=== PATIENT | female | born 1995 | race Caucasian/White ===

== ENCOUNTER 2016-08-28 17:13 | Emergency (ER) | payer BC ==
[2016-08-28] MEDS ORDERED: Triamcinolone Acetonide 40 MG/ML 1 ML MDV INJECT ONE (17:30)
[2016-08-28 17:31] VITALS: BP 138/81
--- NOTE | 2016-08-29 08:48 | ER ---
Date of Service: 08/28/2016 SUBJECTIVE: Bri presents to emergency room with complaints of eye irritation, sinus congestion, and sore throat. The patient states that she has been experiencing these symptoms for over 2 weeks. She states that she was seen in the clinic for congestion that was associated with more facial pain and was started on an antibiotic. The patient was started on cefuroxime but states that the symptoms have gotten worse. The facial pain continues to be improved. Again, she also does complain of some sore throat with this as well. She has also noticed some mild mattering to her eyes typically in the mornings. PAST MEDICAL HISTORY: GERD. MEDICATIONS: 1. Depo-Provera. 2. Zantac. 3. Nexium. ALLERGIES: 1. Amoxicillin. 2. Potassium clavulanate. 3. Sulfa. REVIEW OF SYSTEMS: General: No fever or chills. HEENT: Positive for eye, throat, and nose irritation and sinus congestion. Respiratory: Denies any shortness of breath or wheezing. Cardiac: Denies any substernal chest pain. No jaw, arm, neck, or back pain. GI: No nausea, vomiting, or diarrhea. No melena, hematochezia, or hematemesis. PHYSICAL EXAMINATION: General: This is a 20-year-old female patient, who is in no acute distress. Vital Signs: Blood pressure is 138/81, pulse rate is 101, temperature is 36.8, respiratory rate 16. Skin: Warm, pink, and dry. HEENT: Head is normocephalic, atraumatic. Eyes, PERRLA. Her conjunctiva is quite injected bilaterally. No mattering noted. Ears, TMs are clear. Mouth, oral mucosa is moist. Nose, nasal mucosa is somewhat robertson and boggy. Ears, TMs are clear. Lungs: Clear to auscultation. Heart: Regular rate and rhythm. ASSESSMENT: 1. Allergic conjunctivitis. 2. Allergic rhinitis. PLAN: The patient was given injection of Kenalog 80 mg IM. She was advised to take Benadryl 50 mg every 4-6 hours as needed when she is sleeping and 10 mg of Zyrtec particularly in the morning to help with her symptoms without causing drowsiness. All questions were answered. MWK: 08/28/2016 17:38:15 MODL: 08/28/2016 20:56:48 /[id number]
== END 2016-08-28 17:40 | disposition home or self-care (01) ==
LOC: VM.ED 17:13
DX: H10.13 Acute atopic conjunctivitis, bilateral (principal); K21.9 Gastro-esophageal reflux disease without esophagitis; Z88.1 Allergy status to other antibiotic agents; Z88.2 Allergy status to sulfonamides; Z88.8 Allergy status to other drugs, medicaments and biological substances; J30.9 Allergic rhinitis, unspecified
CPT/HCPCS: 96372; 99282; J3301

== ENCOUNTER 2016-12-14 20:50 | Emergency (ER) | payer BC ==
[2016-12-14] MEDS ORDERED: Sodium Chloride 0.9% 500 ML IV ONE (21:00)
[2016-12-14] MEDS ORDERED: Sodium Chloride 0.9% 10 ML Syringe FLUSH PRN (21:00)
[2016-12-14] MEDS ORDERED: Ondansetron 4 MG/2 ML SDV IVPUSH ONE (21:01)
[2016-12-14] MEDS ORDERED: Alum Hydroxide/Mag Hydroxide 10 ML, Lidocaine 2% 10 ML, Promethazine 12.5 MG PO ONE ×6 (21:02→21:29)
--- NOTE | 2016-12-14 21:05 | EDM.PDOC ---
[id number]: please delete duplicate chart Time Seen by Provider: 12/15/16 00:26 - Related Data Allergies Allergy/AdvReac Type Severity Reaction Status Date / Time amoxicillin trihydrate Allergy Rash Verified 08/28/16 17:24 [From Augmentin] potassium clavulanate Allergy Rash Verified 08/28/16 17:24 [From Augmentin] Sulfa (Sulfonamide Allergy Rash Verified 08/28/16 17:24 Antibiotics) Home Meds: Home Meds medroxyPROGESTERone Acetate [Depo-Provera] 150 mg IM Q90D 01/01/15 [History] Esomeprazole [NexIUM] 20 mg PO DAILY 01/28/15 [History] Ranitidine [Zantac] 150 mg PO BID PRN 01/28/15 [History] Past Medical History Other Gastrointestinal History: chronic abd. pain - Past Surgical History HEENT Surgical History: Reports: Adenoidectomy, Tonsillectomy Other Musculoskeletal Surgeries/Procedures:: ankle fx sx Social & Family History - Family History Family Medical History: Noncontributory - Tobacco Use Smoking Status *Q: Never Smoker Second Hand Smoke Exposure: No - Alcohol Use Number of Drinks Per Day: 5 - Recreational Drug Use Recreational Drug Use: No Drug Use in Last 12 Months: No ED ROS GENERAL - Review of Systems Review Of Systems: See Below ED EXAM, GI/ABD - Physical Exam Exam: See Below Course - Orders/Labs/Meds Orders: Active Orders 24 hr Category Date Time Status Abdomen Pelvis w Cont [CT] Stat Exams 12/14/16 20:58 Taken Sodium Chloride 0.9% [Normal Saline] 100 ml Med 12/14/16 21:15 Active IV ASDIRECTED Sodium Chloride 0.9% [Saline Flush] Med 12/14/16 21:00 Active 10 ml FLUSH ASDIRECTED PRN Peripheral IV Insertion Adult [OM.PC] Routine Oth 12/14/16 21:00 Ordered Medication Orders Sodium Chloride (Normal Saline) 100 mls @ 3 mls/sec IV ASDIRECTED ISAIAH Last Admin: 12/14/16 21:45 Dose: 3 mls/sec Sodium Chloride (Saline Flush) 10 ml FLUSH ASDIRECTED PRN PRN Reason: Keep Vein Open Labs: Laboratory Tests 12/14/16 12/14/16 Range/Units 21:10 21:10 WBC 6.3 (4.0-10.0) x10^3/uL RBC 4.80 (4.00-5.50) x10^6/uL Hgb 13.0 (12.0-16.0) g/dL Hct 39.5 (33.0-47.0) % MCV 82.3 (78.0-93.0) fL MCH 27.1 (26.0-32.0) pg MCHC 32.9 (32.0-36.0) g/dL RDW Coeff of Sam 14.2 (10.0-15.0) % Plt Count 290 (130-400) x10^3/uL Neut % (Auto) 52.0 (50.0-80.0) % Lymph % (Auto) 36.3 (25.0-50.0) % [place] % (Auto) 9.6 (2.0-11.0) % Eos % (Auto) 1.9 (0.0-4.0) % Baso % (Auto) 0.2 (0.2-1.2) % Sodium 142 (136-145) mmol/L Potassium 3.6 (3.5-5.1) mmol/L Chloride 104 (98-107) mmol/L Carbon Dioxide 26 (21-32) mmol/L BUN 8 (7-18) mg/dL Creatinine 0.8 (0.55-1.02) mg/dL Est Cr Clr Drug Dosing TNP Estimated GFR (MDRD) > 60 Glucose 102 (74-106) mg/dL Calcium 8.7 (8.5-10.1) mg/dL Corrected Calcium 9.02 (8.5-10.1) mg/dL Total Bilirubin 0.4 (0.2-1.0) mg/dL AST 13 L (15-37) U/L ALT 19 (14-59) U/L Alkaline Phosphatase 53 (46-116) U/L C-Reactive Protein < 0.2 (<=0.9) mg/dL Total Protein 7.9 (6.4-8.2) g/dL Albumin 3.6 (3.4-5.0) g/dL Globulin 4.3 Albumin/Globulin Ratio 0.84 Meds: Medications Generic Name Dose Route Start Last Admin Trade Name Freq PRN Reason Stop Dose Admin Sodium Chloride 100 mls @ 3 mls/sec 12/14/16 21:15 12/14/16 21:45 Normal Saline IV 3 mls/sec ASDIRECTED ISAIAH Administration Sodium Chloride 10 ml 12/14/16 21:00 Saline Flush FLUSH ASDIRECTED PRN Keep Vein Open Discontinued Medications Generic Name Dose Route Start Last Admin Trade Name Freq PRN Reason Stop Dose Admin Al Hydroxide/Mg Hydroxide Confirm 12/14/16 21:38 12/14/16 21:35 Gi Cocktail Administered 12/14/16 21:39 30 ml Dose Administration 30 ml .ROUTE .STK-MED ONE Al Hydroxide/Mg Hydroxide 10 0 ml 12/14/16 21:02 12/14/16 21:35 ml/ Lidocaine HCl 10 ml/ PO 12/14/16 21:03 Not Given Promethazine HCl 12.5 mg ONETIME ONE Al Hydroxide/Mg Hydroxide 10 0 ml 12/14/16 21:29 12/14/16 21:36 ml/ Lidocaine HCl 10 ml/ PO 12/14/16 21:30 Not Given Promethazine HCl 12.5 mg ONETIME ONE Sodium Chloride 500 mls @ 500 mls/hr 12/14/16 21:00 Normal Saline IV 12/14/16 21:59 ONETIME ONE Iopamidol 100 ml 12/14/16 21:15 12/14/16 21:44 Isovue-300 (61%) IVPUSH 12/14/16 21:16 100 ml ONETIME ONE Administration Ondansetron HCl 4 mg 12/14/16 21:01 12/14/16 21:25 Zofran IVPUSH 12/14/16 21:02 4 mg ONETIME ONE Administration Departure - Departure Time of Disposition: 23:40 Disposition: Home, Self-Care 01 Clinical Impression: Acid reflux Qualifiers: Esophagitis presence: with esophagitis Qualified Code(s): K21.0 - Gastro- esophageal reflux disease with esophagitis - Discharge Information Referrals: Bri Barrios PA-C [Primary Care Provider] - 1 Day Additional Instructions: Please delete chart duplicate - My Orders Last 24 Hours: My Active Orders 12/14/16 20:58 Abdomen Pelvis w Cont [CT] Stat 12/14/16 21:00 Sodium Chloride 0.9% [Saline Flush] 10 ml FLUSH ASDIRECTED PRN Peripheral IV Insertion Adult [OM.PC] Routine 12/14/16 21:15 Sodium Chloride 0.9% [Normal Saline] 100 ml IV ASDIRECTED - Assessment/Plan Last 24 Hours: My Active Orders 12/14/16 20:58 Abdomen Pelvis w Cont [CT] Stat 12/14/16 21:00 Sodium Chloride 0.9% [Saline Flush] 10 ml FLUSH ASDIRECTED PRN Peripheral IV Insertion Adult [OM.PC] Routine 12/14/16 21:15 Sodium Chloride 0.9% [Normal Saline] 100 ml IV ASDIRECTED
--- NOTE | 2016-12-14 21:10 | EDM.PDOC ---
ED HPI GENERAL MEDICAL PROBLEM - General Chief Complaint: Abdominal Pain Time Seen by Provider: 12/14/16 20:54 Source of Information: Reports: Patient - History of Present Illness INITIAL COMMENTS - FREE TEXT/NARRATIVE: Pt states she has a long standing history with acid reflex. Starting approx 3 days ago she began having intermittant abdominal pain that she thought would get better. However this afternoon severe pressure, bloating, and pain progressed bringing her here now. Pt states she has not had a normal bowel movement in the past week. Did take 2 doses of miralax to help with the constipation with little relief. Pt denies any bloody stool or vomiting. Positive for nausea and decrease flatus. Onset: Gradual Onset Date: 12/12/16 Duration: Getting Worse Quality: Reports: Pressure, Sharp, Stabbing Severity: Severe Improves with: Reports: None Worsens with: Reports: None Associated Symptoms: Reports: Loss of Appetite, Malaise, Nausea/Vomiting. Denies: Confusion, Headaches, Seizure Treatments [employer]: Reports: Other (see below) (miralax) - Related Data Allergies Allergy/AdvReac Type Severity Reaction Status Date / Time amoxicillin trihydrate Allergy Rash Verified 08/28/16 17:24 [From Augmentin] potassium clavulanate Allergy Rash Verified 08/28/16 17:24 [From Augmentin] Sulfa (Sulfonamide Allergy Rash Verified 08/28/16 17:24 Antibiotics) Home Meds: Home Meds medroxyPROGESTERone Acetate [Depo-Provera] 150 mg IM Q90D 01/01/15 [History] Esomeprazole [NexIUM] 20 mg PO DAILY 01/28/15 [History] Ranitidine [Zantac] 150 mg PO BID PRN 01/28/15 [History] Past Medical History Other Gastrointestinal History: chronic abd. pain - Past Surgical History HEENT Surgical History: Reports: Adenoidectomy, Tonsillectomy Other Musculoskeletal Surgeries/Procedures:: ankle fx sx Social & Family History - Family History Family Medical History: Noncontributory - Tobacco Use Smoking Status *Q: Never Smoker Second Hand Smoke Exposure: No - Alcohol Use Number of Drinks Per Day: 5 - Recreational Drug Use Recreational Drug Use: No Drug Use in Last 12 Months: No ED ROS GENERAL - Review of Systems Review Of Systems: See Below Constitutional: Reports: Decreased Appetite. Denies: Fever, Chills, Malaise HEENT: Reports: No Symptoms Respiratory: Reports: No Symptoms, Hemoptysis. Denies: Shortness of Breath Cardiovascular: Reports: No Symptoms. Denies: Chest Pain Endocrine: Reports: No Symptoms GI/Abdominal: Reports: Abdominal Pain, Anorexia, Constipation, Diarrhea (2 very small loose stools after taking miralax), Distension, Nausea. Denies: Black Stool, Bloody Stool, Difficulty Swallowing, Melena, Mucous in Stool, Vomiting : Reports: No Symptoms Musculoskeletal: Reports: No Symptoms Skin: Reports: No Symptoms Neurological: Reports: No Symptoms Psychiatric: Reports: No Symptoms ED EXAM, GI/ABD - Physical Exam Exam: See Below Exam Limited By: No Limitations General Appearance: Alert, WD/WN, No Apparent Distress Head: Atraumatic, Normocephalic Respiratory/Chest: No Respiratory Distress, Lungs Clear, No Accessory Muscle Use , Chest Non-Tender Cardiovascular: Normal Peripheral Pulses, Regular Rate, Rhythm, No Edema, No JVD GI/Abdominal Exam: Distended, Guarding, Tender, Abnormal Bowel Sounds. No: No Abnormal Bruit, Pelvis Stable, Hepatomegaly, Splenomegaly Extremities: Normal Inspection, Normal Range of Motion, Normal Capillary Refill Neurological: Alert, Oriented, CN II-XII Intact Psychiatric: Normal Affect, Normal Mood Skin Exam: Warm, Dry, Intact, Normal Color Course - Orders/Labs/Meds Orders: Active Orders 24 hr Category Date Time Status Abdomen Pelvis w Cont [CT] Stat Exams 12/14/16 20:58 Taken Sodium Chloride 0.9% [Normal Saline] 100 ml Med 12/14/16 21:15 Active IV ASDIRECTED Sodium Chloride 0.9% [Saline Flush] Med 12/14/16 21:00 Active 10 ml FLUSH ASDIRECTED PRN Peripheral IV Insertion Adult [OM.PC] Routine Oth 12/14/16 21:00 Ordered Medication Orders Sodium Chloride (Normal Saline) 100 mls @ 3 mls/sec IV ASDIRECTED [facility] Last Admin: 12/14/16 21:45 Dose: 3 mls/sec Sodium Chloride (Saline Flush) 10 ml FLUSH ASDIRECTED PRN PRN Reason: Keep Vein Open Labs: Laboratory Tests 12/14/16 12/14/16 Range/Units 21:10 21:10 WBC 6.3 (4.0-10.0) x10^3/uL RBC 4.80 (4.00-5.50) x10^6/uL Hgb 13.0 (12.0-16.0) g/dL Hct 39.5 (33.0-47.0) % MCV 82.3 (78.0-93.0) fL MCH 27.1 (26.0-32.0) pg MCHC 32.9 (32.0-36.0) g/dL RDW Coeff of Sam 14.2 (10.0-15.0) % Plt Count 290 (130-400) x10^3/uL Neut % (Auto) 52.0 (50.0-80.0) % Lymph % (Auto) 36.3 (25.0-50.0) % [place] % (Auto) 9.6 (2.0-11.0) % Eos % (Auto) 1.9 (0.0-4.0) % Baso % (Auto) 0.2 (0.2-1.2) % Sodium 142 (136-145) mmol/L Potassium 3.6 (3.5-5.1) mmol/L Chloride 104 (98-107) mmol/L Carbon Dioxide 26 (21-32) mmol/L BUN 8 (7-18) mg/dL Creatinine 0.8 (0.55-1.02) mg/dL Est Cr Clr Drug Dosing TNP Estimated GFR (MDRD) > 60 Glucose 102 (74-106) mg/dL Calcium 8.7 (8.5-10.1) mg/dL Corrected Calcium 9.02 (8.5-10.1) mg/dL Total Bilirubin 0.4 (0.2-1.0) mg/dL AST 13 L (15-37) U/L ALT 19 (14-59) U/L Alkaline Phosphatase 53 (46-116) U/L C-Reactive Protein < 0.2 (<=0.9) mg/dL Total Protein 7.9 (6.4-8.2) g/dL Albumin 3.6 (3.4-5.0) g/dL Globulin 4.3 Albumin/Globulin Ratio 0.84 Meds: Medications Generic Name Dose Route Start Last Admin Trade Name Freq PRN Reason Stop Dose Admin Sodium Chloride 100 mls @ 3 mls/sec 12/14/16 21:15 08/04/17 21:45 Normal Saline IV 3 mls/sec ASDIRECTED ISAIAH Administration Sodium Chloride 10 ml 12/14/16 21:00 Saline Flush FLUSH ASDIRECTED PRN Keep Vein Open Discontinued Medications Generic Name Dose Route Start Last Admin Trade Name Ekaterina PRN Reason Stop Dose Admin Al Hydroxide/Mg Hydroxide Confirm 12/14/16 21:38 12/14/16 21:35 Gi Cocktail Administered 12/14/16 21:39 30 ml Dose Administration 30 ml .ROUTE .STK-MED ONE Al Hydroxide/Mg Hydroxide 10 0 ml 12/14/16 21:02 12/14/16 21:35 ml/ Lidocaine HCl 10 ml/ PO 12/14/16 21:03 Not Given Promethazine HCl 12.5 mg ONETIME ONE Al Hydroxide/Mg Hydroxide 10 0 ml 12/14/16 21:29 12/14/16 21:36 ml/ Lidocaine HCl 10 ml/ PO 12/14/16 21:30 Not Given Promethazine HCl 12.5 mg ONETIME ONE Sodium Chloride 500 mls @ 500 mls/hr 12/14/16 21:00 Normal Saline IV 12/14/16 21:59 ONETIME ONE Iopamidol 100 ml 12/14/16 21:15 12/14/16 21:44 Isovue-300 (61%) IVPUSH 12/14/16 21:16 100 ml ONETIME ONE Administration Ondansetron HCl 4 mg 12/14/16 21:01 12/14/16 21:25 Zofran IVPUSH 12/14/16 21:02 4 mg ONETIME ONE Administration Departure - Departure Time of Disposition: 22:40 Disposition: Home, Self-Care 01 Condition: Good Clinical Impression: Reflux esophagitis, Reflux gastritis - Discharge Information Instructions: Abdominal Pain, Adult, [id number] Forms: ED Department Discharge - My Orders Last 24 Hours: My Active Orders 12/14/16 20:58 Abdomen Pelvis w Cont [CT] Stat 12/14/16 21:00 Sodium Chloride 0.9% [Saline Flush] 10 ml FLUSH ASDIRECTED PRN Peripheral IV Insertion Adult [OM.PC] Routine 12/14/16 21:15 Sodium Chloride 0.9% [Normal Saline] 100 ml IV ASDIRECTED - Assessment/Plan Last 24 Hours: My Active Orders 12/14/16 20:58 Abdomen Pelvis w Cont [CT] Stat 12/14/16 21:00 Sodium Chloride 0.9% [Saline Flush] 10 ml FLUSH ASDIRECTED PRN Peripheral IV Insertion Adult [OM.PC] Routine 12/14/16 21:15 Sodium Chloride 0.9% [Normal Saline] 100 ml IV ASDIRECTED
[2016-12-14] MEDS ORDERED: Sodium Chloride 0.9% 100 ML IV SCH (21:15)
[2016-12-14] MEDS ORDERED: Iopamidol 612 MG/ML 100 ML Bottle IVPUSH ONE (21:15)
[2016-12-14] MEDS ORDERED: GI Cocktail Oral Solution 30 ML ONE (21:38)
[2016-12-14 21:48] LABS: CHLORIDE,CL 104 mmol/L (98-107); SODIUM,NA 142 mmol/L (136-145)
[2016-12-15 04:17] VITALS: BP 142/62
== END 2016-12-14 22:45 | disposition home or self-care (01) ==
LOC: VM.ED 20:50 → SUPCPDRO 20:50 → VM.ED 22:45
DX: K21.0 Gastro-esophageal reflux disease with esophagitis (principal); Z88.2 Allergy status to sulfonamides; Z88.1 Allergy status to other antibiotic agents; Z79.899 Other long term (current) drug therapy; Z90.89 Acquired absence of other organs
CPT/HCPCS: 74177; 80053; 85025; 86140; 96365; 96375; 99284; A9270; J2405; J7050; Q9967

== ENCOUNTER 2017-07-11 06:57 | Day surgery (SDC) | payer BC ==
[2017-07-11] MEDS ORDERED: fentaNYL 100 MCG/2 ML SDV ONE (07:58)
[2017-07-11] MEDS ORDERED: Propofol 200 MG/20 ML SDV ONE ×3 (07:59→09:30)
[2017-07-11] MEDS: Lactated Ringers 1,000 ML IV SCH (08:05)
[2017-07-11 10:41] VITALS: BP 126/74
[2017-07-11] MEDS: Nalbuphine 10 MG/1 ML Vial IVPUSH ONE (13:15)
--- NOTE | 2017-07-11 18:07 | OR ---
SURGERY DATE: 07/11/2017. REFERRING PROVIDER: Petr Martinez MD. PREOPERATIVE DIAGNOSES: 1. Chronic upper abdominal pain and bloating, worsened by eating certain foods. 2. Chronic nausea and vomiting. 3. Irregular bowel movements with alternating constipation and diarrhea. POSTOPERATIVE DIAGNOSES: Normal appearing esophagus, stomach, and duodenum. Cold biopsies taken from the duodenum x4 bites and antrum x2 bites. PROCEDURE: EGD with biopsies x2 sites using cold forceps. SURGEON: Carlitos Cao M.D. ANESTHESIA: Monitored anesthesia care. Bri is a 21-year-old female who was brought to the endoscope suite after discussion of risks and benefits (including but not limited to reaction to medication, bleeding, infection, aspiration, perforation). Informed consent was obtained for monitored anesthesia care and esophagogastroduodenoscopy along with possible biopsy and/or dilatation. Pre-procedure exam including oral cavity was unremarkable. IV, oxygen, and monitors were placed. Patient was placed in the left lateral position and sedation was administered. A bite block was placed gently and scope lightly lubricated and passed through the bite block and over the tongue. Hypopharynx and vocal cords were visualized and unremarkable. Scope was passed through the cricopharynx and into the esophagus. The scope was then passed through the distal esophagus and the GE junction was visualized and photographed. The GE junction was unremarkable. Vocal cords were visualized and unremarkable. The scope was advanced into the stomach and gastric reagan was suctioned. Pylorus was identified and intubated and then the scope was advanced to the third portion of the duodenum. The second and third portions of the duodenum were unremarkable. The duodenal bulb was visualized and unremarkable. A total of 4 bites taken from the duodenum for path. The scope was brought back into the stomach. The pylorus and the antrum were unremarkable. Cold biopsy x2 bites was taken from this area to check for H. pylori and sent for path. The scope was retroflexed to visualize the angularis, fundus, body, and cardia. These were unremarkable. The stomach was desufflated of air and then the scope was slowly withdrawn, and the esophagus was closely visualized during withdrawal all the way into the posterior pharynx. In the upper esophagus there was an area of heterotopic type mucosa. Cold biopsy x2 bites was taken of this area and sent for path. The patient tolerated the procedure well and went to recovery in stable condition. The patient was monitored until at baseline status. Findings and discharge instructions were reviewed and the patient was discharged in good condition. COMPLICATIONS: None. TOTAL TIME: 8 minutes. ESTIMATED BLOOD LOSS: About 1 mL. RECOMMENDATIONS/FOLLOWUP: No medication changes for now. We will await results of path report. I would like to kindly thank Dr. Martinez for this referral. DMB: 07/11/2017 10:15:25 MODL: 07/11/2017 17:56:26 /[id number]
--- NOTE | 2017-07-11 18:12 | OR ---
DATE OF SURGERY: 07/11/2017. REFERRING PROVIDER: Petr Martinez MD, [facility] in [place]. PREOPERATIVE DIAGNOSES: 1. Chronic upper abdominal pain and bloating. 2. Chronic nausea and vomiting. 3. Irregular bowel pattern with alternating constipation and diarrhea. Symptoms ongoing for the past 4+ years. POSTOPERATIVE DIAGNOSES: Normal-appearing colon and distal ilium. Distal ilium did have mild cobblestone-like appearance but this appeared to be normal lymphoid tissue. Cold biopsies taken from the distal ilium as well as randomly throughout the colon. PROCEDURE: Colonoscopy with cold biopsy x2 sites (distal ileal and random colon). SURGEON: Carlitos Cao M.D. ANESTHESIA: Monitored anesthesia care. BOWEL PREP: Good. Bri is a 21-year-old female who was brought to the endoscopy suite after discussing risks and benefits of the procedure. Informed consent was obtained for conscious sedation and colonoscopy with or without biopsy and/or polypectomy. We also discussed possibility of missed lesions. Pre-procedure exam was unremarkable. IV, oxygen, and monitors were placed. The patient was placed in the left lateral decubitus position. Sedation was administered and a digital rectal exam was performed and unremarkable. Colonoscope was passed into the rectum and slowly advanced all the way to the cecum. Cecum was viewed and photographed. Distal ilium was intubated and did have mild cobblestone like appearance but I think this represents just some normal lymphoid tissue. Biopsies x3 bites taken from the terminal ileum. The colonoscope was slowly withdrawn and the mucosa was closed observed in a direct circumferential manner. The ascending colon was unremarkable. The transverse colon was unremarkable. The descending colon was unremarkable. The sigmoid colon was unremarkable. Retroflexion was performed and rectal mucosa was unremarkable. During withdrawal, I did obtain random colon biopsies from the right colon, transverse colon, descending colon, sigmoid colon, and rectal areas. Scope was removed. The patient tolerated the procedure well. The patient was monitored until that baseline status. Discharge instructions were reviewed and the patient was discharged in good condition. COMPLICATIONS: None. TOTAL TIME: 22 minutes. ESTIMATED BLOOD LOSS: About 1 mL. RECOMMENDATIONS/FOLLOWUP: We will await results of path report to determine ideal followup interval and the need for any additional treatment or workup. I would like to kindly thank Dr. Martinez for this referral. DMB: 07/11/2017 10:19:11 MODL: 07/11/2017 18:05:57 /[id number]
== END 2017-07-11 13:09 | disposition home or self-care (01) ==
LOC: VM.SDS 06:57
PROVIDERS: ATTEND Family Medicine
DX: K29.50 Unspecified chronic gastritis without bleeding (principal); J30.9 Allergic rhinitis, unspecified; Z88.8 Allergy status to other drugs, medicaments and biological substances; Z88.2 Allergy status to sulfonamides; Z79.899 Other long term (current) drug therapy; Z90.49 Acquired absence of other specified parts of digestive tract
CPT/HCPCS: 43239; 45380; 81025; J2300; J2704; J3010; J7120

== ENCOUNTER 2017-07-13 10:42 | Emergency (ER) | payer BC ==
--- NOTE | 2017-07-13 10:57 | EDM.PDOC ---
ED HPI GENERAL MEDICAL PROBLEM - General Chief Complaint: ENT Problem Stated Complaint: RIGHT EAR HURTS Time Seen by Provider: 07/13/17 10:44 Source of Information: Reports: Patient History Limitations: Reports: No Limitations - History of Present Illness INITIAL COMMENTS - FREE TEXT/NARRATIVE: Patient comes into the emergency department today after a one-day history of severe right ear pain. Patient states that it was a sudden abrupt onset. Denies any ear trauma, dizziness, lightheadedness, or blurred vision. She states she's had an ear infection before this feels similar to that. 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 She states that she believes she has a low-grade fever she has not checked her temperature but she does have chills. Denies any nausea, vomiting, diarrhea, throat discomfort/pain, or shortness of breath. She is otherwise healthy and has no other health concerns Onset: Sudden Onset Date: 07/12/17 Severity: Moderate Improves with: Reports: None Worsens with: Reports: None Right Ear Pain Score (Numeric/FACES): 7 - Related Data Allergies Allergy/AdvReac Type Severity Reaction Status Date / Time amoxicillin trihydrate Allergy Rash Verified 07/13/17 10:49 [From Augmentin] potassium clavulanate Allergy Rash Verified 07/13/17 10:49 [From Augmentin] Sulfa (Sulfonamide Allergy Rash Verified 07/13/17 10:49 Antibiotics) Home Meds: Home Meds Esomeprazole [NexIUM] 40 mg PO BID 01/28/15 [History] Ranitidine [Zantac] 75 mg PO BID PRN 01/28/15 [History] Levonorgestrel-Ethin Estradiol [Aviane-28 Tablet] 1 tab PO DAILY 07/10/17 [ History] Ondansetron HCl [Zofran] 4 mg PO TID PRN 07/10/17 [History] Cefdinir [IJD: Cefdinir] 300 mg PO BID 10 Days #20 cap 07/13/17 [Rx] Past Medical History HEENT History: Reports: Allergic Rhinitis Cardiovascular History: Reports: None Respiratory History: Reports: None Gastrointestinal History: Reports: Gastritis Other Gastrointestinal History: chronic abd. pain. 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 Musculoskeletal History: Reports: None Neurological History: Reports: None Psychiatric History: Reports: None Endocrine/Metabolic History: Reports: None Hematologic History: Reports: None Immunologic History: Reports: None Oncologic (Cancer) History: Reports: None Dermatologic History: Reports: None - Past Surgical History Head Surgeries/Procedures: Reports: None HEENT Surgical History: Reports: Oral Surgery, Tonsillectomy Cardiovascular Surgical History: Reports: None Respiratory Surgical History: Reports: None GI Surgical History: Reports: EGD Female Surgical History: Reports: None Endocrine Surgical History: Reports: None Neurological Surgical History: Reports: None Other Musculoskeletal Surgeries/Procedures:: ankle fx sx Oncologic Surgical History: Reports: None Dermatological Surgical History: Reports: None Social & Family History - Family History Family Medical History: Noncontributory - Tobacco Use Smoking Status *Q: Never Smoker Second Hand Smoke Exposure: No - Alcohol Use Number of Drinks Per Day: 5 - Recreational Drug Use Recreational Drug Use: No Drug Use in Last 12 Months: No ED ROS ENT - Review of Systems Review Of Systems: See Below Constitutional: Reports: No Symptoms HEENT: Reports: Ear Pain. Denies: Eye Discharge, Eye Pain, Glasses, Hearing Loss, Nosebleed, Nose Pain, Rhinitis, Sinus Problem, Throat Pain, Throat Swelling, Vertigo, Vision Change Respiratory: Reports: No Symptoms Cardiovascular: Reports: No Symptoms Endocrine: Reports: No Symptoms GI/Abdominal: Reports: No Symptoms Musculoskeletal: Reports: No Symptoms Skin: Reports: No Symptoms Neurological: Reports: No Symptoms ED EXAM, ENT - Physical Exam Exam: See Below Exam Limited By: No Limitations General Appearance: Alert, WD/WN, No Apparent Distress Ears: TM Bulging (right ear), TM Erythema (right ear). No: Auricular Erythema, Auricular Ecchymosis, Auricular Tenderness, Mastoid Swelling, Mastoid Tenderness , Canal Blood, Canal Discharge, Canal Foreign Body, Canal Material, Canal Swelling, TM Obscured by Cerumen, Cerumen Impaction Nose: Normal Inspection, Normal Mucousa, No Blood Mouth/Throat: Normal Inspection Head: Atraumatic, Normocephalic Respiratory/Chest: No Respiratory Distress, Lungs Clear, Normal Breath Sounds, No Accessory Muscle Use, Chest Non-Tender Cardiovascular: Normal Peripheral Pulses, Regular Rate, Rhythm, No Edema Neurological: Alert, Oriented Psychiatric: Normal Affect, Normal Mood Skin: Warm, Dry, Intact, Normal Color Course - Vital Signs Last Recorded V/S: Last Vital Signs Temp 37.9 C 07/13/17 10:47 Pulse 99 07/13/17 10:47 Resp 14 07/13/17 10:47 BP 157/95 H 07/13/17 10:47 Pulse Ox 95 07/13/17 10:47 Departure - Departure Time of Disposition: 10:55 Disposition: Home, Self-Care 01 Condition: Good Clinical Impression: Otitis media Qualifiers: Otitis media type: suppurative Chronicity: acute Laterality: right Spontaneous tympanic membrane rupture: without spontaneous rupture - Discharge Information Prescriptions: Cefdinir [IJD: Cefdinir] 300 mg PO BID 10 Days #20 cap Instructions: Otitis Media, Adult, [id number] Referrals: PCP,None [Ordering Only Provider] - Forms: ED Department Discharge Additional Instructions: 1. Increase water intake 2. Rest 3. Ensure wearing a hat while outdoors 4. Avoid submerging head under water 5. Follow up with PCP in 7-10 days if not feeling better 6. Take [id number] ibuprofen or Tylenol for pain fever or discomfort 7. Activity and diet as tolerated - Assessment/Plan Plan: Assessment: otitis media. 1. Take abx as prescribed. Pt is allergic to PCN and sulfa. Cefinir prescribed for 10 days. 2. Education given to pt regarding proper care of otitis media 3. Information given regarding when to follow up and OTC pain/fever management.
[2017-07-13 11:15] VITALS: BP 149/84
== END 2017-07-13 11:00 | disposition home or self-care (01) ==
LOC: VM.ED 10:42
DX: H66.001 Acute suppurative otitis media without spontaneous rupture of ear drum, right ear (principal); Z88.1 Allergy status to other antibiotic agents; Z88.2 Allergy status to sulfonamides; Z79.899 Other long term (current) drug therapy
CPT/HCPCS: 99282

== ENCOUNTER 2018-01-05 15:32 | Emergency (ER) | payer BC ==
[2018-01-05 15:50] VITALS: BP 158/62
[2018-01-05] MEDS ORDERED: Sodium Chloride 0.9% 10 ML Syringe FLUSH PRN (15:50)
[2018-01-05] MEDS: GI Cocktail Oral Solution 30 ML PO ONE (16:05)
[2018-01-05] MEDS: Lactated Ringers 1,000 ML IV SCH (16:13)
[2018-01-05] MEDS: Ondansetron 4 MG/2 ML SDV IVPUSH ONE (16:13)
[2018-01-05 16:39] LABS: CHLORIDE,CL 103 mmol/L (98-107); SODIUM,NA 138 mmol/L (136-145)
[2018-01-05 16:45] LABS: ANION GAP 10.7 mmol/L (10-20)
--- NOTE | 2018-01-05 17:09 | EDM.PDOC ---
ED HPI GENERAL MEDICAL PROBLEM - General Chief Complaint: Abdominal Pain Time Seen by Provider: 01/05/18 15:32 Source of Information: Reports: Patient History Limitations: Reports: No Limitations - History of Present Illness INITIAL COMMENTS - FREE TEXT/NARRATIVE: Pt. presents to ER complaining of mid abdominal discomfort. Denies any fever or chills. States that the discomfort is similar to when she has had gastritis in the past. Nauseated, no vomiting. Experiencing occasional diarrhea, but normally has issues with constipation. She has had upper and lower endoscopy and has seen GI in the past. She is scheduled for a [place] referral next month. States that when she has had discomfort like this, GI cocktail has been beneficial. Onset: Today Location: Reports: Abdomen Quality: Reports: Burning Severity: Moderate Lower Abdomen Pain Score (Numeric/FACES): 3 - Related Data Allergies Allergy/AdvReac Type Severity Reaction Status Date / Time amoxicillin trihydrate Allergy Rash Verified 01/05/18 15:44 [From Augmentin] potassium clavulanate Allergy Rash Verified 01/05/18 15:44 [From Augmentin] Sulfa (Sulfonamide Allergy Rash Verified 01/05/18 15:44 Antibiotics) Home Meds: Home Meds Esomeprazole [NexIUM] 40 mg PO BID 01/28/15 [History] Ranitidine [Zantac] 75 mg PO BID PRN 01/28/15 [History] Levonorgestrel-Ethin Estradiol [Aviane-28 Tablet] 1 tab PO DAILY 07/10/17 [ History] Ondansetron HCl [Zofran] 4 mg PO TID PRN 07/10/17 [History] Cefdinir [IJD: Cefdinir] 300 mg PO BID 10 Days #20 cap 07/13/17 [Rx] Past Medical History HEENT History: Reports: Allergic Rhinitis Cardiovascular History: Reports: None Respiratory History: Reports: None Gastrointestinal History: Reports: Gastritis Other Gastrointestinal History: chronic abd. pain. 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 Musculoskeletal History: Reports: None Neurological History: Reports: None Psychiatric History: Reports: None Endocrine/Metabolic History: Reports: None Hematologic History: Reports: None Immunologic History: Reports: None Oncologic (Cancer) History: Reports: None Dermatologic History: Reports: None - Past Surgical History Head Surgeries/Procedures: Reports: None HEENT Surgical History: Reports: Adenoidectomy, Oral Surgery, Tonsillectomy Cardiovascular Surgical History: Reports: None Respiratory Surgical History: Reports: None GI Surgical History: Reports: Colonoscopy, EGD Female Surgical History: Reports: None Endocrine Surgical History: Reports: None Neurological Surgical History: Reports: None Other Musculoskeletal Surgeries/Procedures:: ankle fx sx Oncologic Surgical History: Reports: None Dermatological Surgical History: Reports: None Social & Family History - Family History Family Medical History: Noncontributory - Tobacco Use Smoking Status *Q: Never Smoker - Recreational Drug Use Recreational Drug Use: No ED ROS GENERAL - Review of Systems Review Of Systems: See Below Constitutional: Reports: No Symptoms HEENT: Reports: No Symptoms Respiratory: Reports: No Symptoms Cardiovascular: Reports: No Symptoms Endocrine: Reports: No Symptoms GI/Abdominal: Reports: Abdominal Pain, Diarrhea. Denies: Hematemesis, Hematochezia, Melena : Reports: No Symptoms Musculoskeletal: Reports: No Symptoms Skin: Reports: No Symptoms Neurological: Reports: No Symptoms Psychiatric: Reports: No Symptoms Hematologic/Lymphatic: Reports: No Symptoms Immunologic: Reports: No Symptoms ED EXAM, GENERAL - Physical Exam Exam: See Below Exam Limited By: No Limitations General Appearance: Alert, WD/WN, No Apparent Distress Throat/Mouth: Normal Inspection, Normal Lips, Normal Teeth, Normal Gums, Normal Oropharynx, Normal Voice, No Airway Compromise Head: Atraumatic, Normocephalic Neck: Normal Inspection, Supple, Non-Tender, Full Range of Motion Respiratory/Chest: No Respiratory Distress, Lungs Clear, Normal Breath Sounds, No Accessory Muscle Use, Chest Non-Tender Cardiovascular: Normal Peripheral Pulses, Regular Rate, Rhythm, No Edema, No Gallop, No JVD, No Murmur, No Rub Peripheral Pulses: 3+: Radial (R) GI/Abdominal: Normal Bowel Sounds, Soft, No Organomegaly, No Distention, No Mass , Tender (Female) Exam: Deferred Rectal (Female) Exam: Deferred Back Exam: Normal Inspection, Full Range of Motion, NT Extremities: Normal Inspection, Normal Range of Motion, Non-Tender, Normal Capillary Refill, No Pedal Edema Neurological: Alert, Oriented, CN II-XII Intact, Normal Cognition, Normal Gait, Normal Reflexes, No Motor/Sensory Deficits Psychiatric: Normal Affect, Normal Mood Skin Exam: Warm, Dry, Intact, Normal Color, No Rash Lymphatic: No Adenopathy Course - Vital Signs Last Recorded V/S: Last Vital Signs Temp 37.3 C 01/05/18 15:32 Pulse 94 01/05/18 15:32 Resp 16 01/05/18 15:32 BP 158/62 H 01/05/18 15:32 Pulse Ox 99 01/05/18 15:32 - Orders/Labs/Meds Orders: Active Orders 24 hr Category Date Time Status HCG URINE, POC [POC] Stat Lab 01/05/18 16:05 Ordered Peripheral IV Insertion Adult [OM.PC] Routine Oth 01/05/18 15:50 Ordered Labs: Laboratory Tests 01/05/18 01/05/18 01/05/18 Range/Units 16:05 16:05 16:12 WBC 5.7 (4.0-10.0) x10^3/uL RBC 4.59 (4.00-5.50) x10^6/uL Hgb 13.2 (12.0-16.0) g/dL Hct 39.1 (33.0-47.0) % MCV 85.2 (78.0-93.0) fL MCH 28.8 (26.0-32.0) pg MCHC 33.8 (32.0-36.0) g/dL RDW Coeff of Sam 14.3 (10.0-15.0) % Plt Count 228 (130-400) x10^3/uL Neut % (Auto) 69.9 (50.0-80.0) % Lymph % (Auto) 17.0 L (25.0-50.0) % [place] % (Auto) 12.2 H (2.0-11.0) % Eos % (Auto) 0.7 (0.0-4.0) % Baso % (Auto) 0.2 (0.2-1.2) % PT (9.6-11.4) SEC INR (2.0-3.5) Sodium (136-145) mmol/L Potassium (3.5-5.1) mmol/L Chloride (98-107) mmol/L Carbon Dioxide (21-32) mmol/L Anion Gap (10-20) mmol/L BUN (7-18) mg/dL Creatinine (0.55-1.02) mg/dL Est Cr Clr Drug Dosing mL/min Estimated GFR (MDRD) Glucose (74-106) mg/dL Calcium (8.5-10.1) mg/dL Corrected Calcium (8.5-10.1) mg/dL Phosphorus (2.6-4.7) mg/dL Magnesium (1.8-2.4) mg/dL Total Bilirubin (0.2-1.0) mg/dL AST (15-37) U/L ALT (14-59) U/L Alkaline Phosphatase (46-116) U/L C-Reactive Protein (<=0.9) mg/dL Total Protein (6.4-8.2) g/dL Albumin (3.4-5.0) g/dL Globulin Albumin/Globulin Ratio Amylase (25-115) U/L Urine Color Red H (YELLOW) Urine Appearance Turbid H (CLEAR) Urine pH 7.0 (5.0-8.0) Ur Specific [place] 1.020 Urine Protein 30 H (NEGATIVE) mg/dL Urine Glucose (UA) Negative (NEGATIVE) mg/dL Urine Ketones Negative (NEGATIVE) mg/dL Urine Occult Blood Large H (NEGATIVE) Urine Nitrite Negative (NEGATIVE) Urine Bilirubin Negative (NEGATIVE) Urine Urobilinogen 0.2 (0.2) EU/dL Ur Leukocyte Esterase Negative (NEGATIVE) Urine RBC Packed (NOT SEEN) /HPF Urine WBC 0-5 (NOT SEEN) /HPF Ur Squamous Epith Cells Rare (NEGATIVE) /HPF Urine Bacteria Few H (NEGATIVE) /HPF Urine Mucus Few H (NEGATIVE) /LPF POC Urine HCG, Qual Negative (NEGATIVE) 01/05/18 01/05/18 Range/Units 16:12 16:12 WBC (4.0-10.0) x10^3/uL RBC (4.00-5.50) x10^6/uL Hgb (12.0-16.0) g/dL Hct (33.0-47.0) % MCV (78.0-93.0) fL MCH (26.0-32.0) pg MCHC (32.0-36.0) g/dL RDW Coeff of Sam (10.0-15.0) % Plt Count (130-400) x10^3/uL Neut % (Auto) (50.0-80.0) % Lymph % (Auto) (25.0-50.0) % [place] % (Auto) (2.0-11.0) % Eos % (Auto) (0.0-4.0) % Baso % (Auto) (0.2-1.2) % PT 9.5 L (9.6-11.4) SEC INR 0.9 L (2.0-3.5) Sodium 138 (136-145) mmol/L Potassium 3.7 (3.5-5.1) mmol/L Chloride 103 (98-107) mmol/L Carbon Dioxide 28 (21-32) mmol/L Anion Gap 10.7 (10-20) mmol/L BUN 16 (7-18) mg/dL Creatinine 0.9 (0.55-1.02) mg/dL Est Cr Clr Drug Dosing 90.23 mL/min Estimated GFR (MDRD) > 60 Glucose 98 (74-106) mg/dL Calcium 9.0 (8.5-10.1) mg/dL Corrected Calcium 9.40 (8.5-10.1) mg/dL Phosphorus 3.5 (2.6-4.7) mg/dL Magnesium 1.8 (1.8-2.4) mg/dL Total Bilirubin 0.4 (0.2-1.0) mg/dL AST 12 L (15-37) U/L ALT 18 (14-59) U/L Alkaline Phosphatase 58 (46-116) U/L C-Reactive Protein < 0.2 (<=0.9) mg/dL Total Protein 7.6 (6.4-8.2) g/dL Albumin 3.5 (3.4-5.0) g/dL Globulin 4.1 Albumin/Globulin Ratio 0.85 Amylase 38 (25-115) U/L Urine Color (YELLOW) Urine Appearance (CLEAR) Urine pH (5.0-8.0) Ur Specific [place] Urine Protein (NEGATIVE) mg/dL Urine Glucose (UA) (NEGATIVE) mg/dL Urine Ketones (NEGATIVE) mg/dL Urine Occult Blood (NEGATIVE) Urine Nitrite (NEGATIVE) Urine Bilirubin (NEGATIVE) Urine Urobilinogen (0.2) EU/dL Ur Leukocyte Esterase (NEGATIVE) Urine RBC (NOT SEEN) /HPF Urine WBC (NOT SEEN) /HPF Ur Squamous Epith Cells (NEGATIVE) /HPF Urine Bacteria (NEGATIVE) /HPF Urine Mucus (NEGATIVE) /LPF POC Urine HCG, Qual (NEGATIVE) Meds: Medications Discontinued Medications Generic Name Dose Route Start Last Admin Trade Name Ekaterina PRN Reason Stop Dose Admin Al Hydroxide/Mg Hydroxide 30 ml 01/05/18 15:51 01/05/18 16:05 Gi Cocktail PO 01/05/18 15:52 30 ml ONETIME ONE Administration Lactated Ringer's 1,000 mls @ 500 mls/hr 01/05/18 16:00 01/05/18 16:13 Ringers, Lactated IV 500 mls/hr ASDIRECTED ISAIAH Administration Ondansetron HCl 4 mg 01/05/18 15:50 01/05/18 16:13 Zofran IVPUSH 01/05/18 15:51 4 mg ONETIME ONE Administration Sodium Chloride 10 ml 01/05/18 15:50 Saline Flush FLUSH ASDIRECTED PRN Keep Vein Open Departure - Departure Time of Disposition: 17:30 Disposition: Home, Self-Care 01 Clinical Impression: Gastritis - Discharge Information Instructions: Gastritis, Adult Referrals: PCP,None [Primary Care Provider] - Forms: ED Department Discharge Additional Instructions: Reglan 10mg every 6 hours Continue with your other medications Follow-up in clinic in 7-10 days Continue with the miralax to help with constipation. Return to ER if worsening discomfort, vomiting, chest pain, or shortness of breath. - My Orders Last 24 Hours: My Active Orders 01/05/18 15:50 Peripheral IV Insertion Adult [OM.PC] Routine 01/05/18 16:05 HCG URINE, POC [POC] Stat - Assessment/Plan Last 24 Hours: My Active Orders 01/05/18 15:50 Peripheral IV Insertion Adult [OM.PC] Routine 01/05/18 16:05 HCG URINE, POC [POC] Stat Plan: Reglan 10mg every 6 hours Continue with your other medications Follow-up in clinic in 7-10 days Continue with the miralax to help with constipation. Return to ER if worsening discomfort, vomiting, chest pain, or shortness of breath.
== END 2018-01-05 17:29 | disposition home or self-care (01) ==
LOC: VM.ED 15:32
DX: K29.70 Gastritis, unspecified, without bleeding (principal); Z88.1 Allergy status to other antibiotic agents; Z88.2 Allergy status to sulfonamides
CPT/HCPCS: 80053; 81001; 81025; 82150; 83735; 84100; 85025; 85610; 86140; 96361; 96374; 99284; A9270; J2405; J7120

== ENCOUNTER 2020-05-28 10:25 | Emergency (ER) | payer BC, MEDICAID ==
[2020-05-28] MEDS ORDERED: LORazepam 1 MG Tab PO ONE (10:46)
--- NOTE | 2020-05-28 10:47 | EDM.PDOC ---
ED HPI GENERAL MEDICAL PROBLEM - General Stated Complaint: blurry vision and shakey Time Seen by Provider: 05/28/20 10:30 Source of Information: Reports: Patient History Limitations: Reports: No Limitations - History of Present Illness INITIAL COMMENTS - FREE TEXT/NARRATIVE: Patient comes emergency department today from home with complaints of blurry vision nausea and shakiness in her hands. This patient is 1 para 0 at 15 weeks gestation. She was without any complaints yesterday. Abruptly just a couple of hours ago prior to coming in the emergency department she had some blurry vision. She then became nauseated. And she has some spasms and numbness sensation to her bilateral hands. She has no headache. She has no double vision just blurry vision. No change in her visual acuity otherwise. No photophobia phonophobia. Nausea without vomiting. No fever no chills. No recent falls trauma or head injury. No head neck or back pain. No chest pain no shortness of breath or difficulty breathing. No cough or congestion. No abdominal pain. Nausea without vomiting. No hematuria dysuria or urinary frequency. No black or tarry stools. No other paresthesias of her upper or lo wer extremities. No change in the functionality of her upper or lower extremities. NO COVID symptoms no COVID exposure. - Related Data Allergies Allergy/AdvReac Type Severity Reaction Status Date / Time amoxicillin trihydrate Allergy Rash Verified 01/16/18 01:07 [From Augmentin] potassium clavulanate Allergy Rash Verified 01/16/18 01:07 [From Augmentin] Sulfa (Sulfonamide Allergy Rash Verified 01/16/18 01:07 Antibiotics) Home Meds: Home Meds Esomeprazole [NexIUM] 40 mg PO BID 01/28/15 [History] Ranitidine [Zantac] 75 mg PO BID PRN 01/28/15 [History] Levonorgestrel/Ethin.estradiol [Aviane-28 Tablet] 1 tab PO DAILY 07/10/17 [History] ondansetron HCL [Zofran] 4 mg PO TID PRN 07/10/17 [History] Cefdinir [IJD: Cefdinir] 300 mg PO BID 10 Days #20 cap 07/13/17 [Rx] Past Medical History HEENT History: Reports: Allergic Rhinitis Cardiovascular History: Reports: None Respiratory History: Reports: None Gastrointestinal History: Reports: Gastritis Other Gastrointestinal History: chronic abd. pain. 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 Musculoskeletal History: Reports: None Neurological History: Reports: None Psychiatric History: Reports: None Endocrine/Metabolic History: Reports: None Hematologic History: Reports: None Immunologic History: Reports: None Oncologic (Cancer) History: Reports: None Dermatologic History: Reports: None - Past Surgical History Head Surgeries/Procedures: Reports: None HEENT Surgical History: Reports: Adenoidectomy, Oral Surgery, Tonsillectomy Cardiovascular Surgical History: Reports: None Respiratory Surgical History: Reports: None GI Surgical History: Reports: Colonoscopy, EGD Female Surgical History: Reports: None Endocrine Surgical History: Reports: None Neurological Surgical History: Reports: None Other Musculoskeletal Surgeries/Procedures:: ankle fx sx Oncologic Surgical History: Reports: None Dermatological Surgical History: Reports: None Social & Family History - Family History Family Medical History: No Pertinent Family History ED ROS GENERAL - Review of Systems Review Of Systems: Comprehensive ROS is negative, except as noted in HPI. ED EXAM, GENERAL - Physical Exam Exam: See Below Exam Limited By: No Limitations General Appearance: Alert, WD/WN, No Apparent Distress, Anxious (very anxious. Eyes are darting around the room. Hyperventilating minimally. Shakey hands. ) Eye Exam: Bilateral Eye: EOMI, PERRL Ears: Normal External Exam, Normal TMs Nose: Normal Inspection, Normal Mucosa, No Blood Throat/Mouth: Normal Inspection, Normal Lips, Normal Teeth, Normal Gums, Normal Oropharynx, Normal Voice, No Airway Compromise, Perioral Cyanosis Head: Atraumatic Neck: Normal Inspection, Supple, Non-Tender, Full Range of Motion Respiratory/Chest: No Respiratory Distress, Lungs Clear, Normal Breath Sounds, No Accessory Muscle Use, Chest Non-Tender Cardiovascular: Normal Peripheral Pulses, Regular Rate, Rhythm GI/Abdominal: Normal Bowel Sounds, Soft, Non-Tender, Other ( heart tones 145. ) (Female) Exam: Deferred Rectal (Female) Exam: Deferred Back Exam: Normal Inspection Extremities: Normal Inspection, Normal Range of Motion, No Pedal Edema, Normal Capillary Refill Neurological: Alert, Oriented, CN II-XII Intact, Normal Cognition, Normal Gait, Normal Reflexes, No Motor/Sensory Deficits Psychiatric: Normal Affect, Normal Mood Skin Exam: Warm, Dry, Intact, Normal Color, No Rash Course - Vital Signs Last Recorded V/S: Last Vital Signs Temp 98.2 F 05/28/20 10:25 Pulse 101 H 05/28/20 10:25 Resp 16 05/28/20 10:25 BP 138/79 05/28/20 10:25 Pulse Ox 100 05/28/20 10:25 - Orders/Labs/Meds Labs: Laboratory Tests 05/28/20 05/28/20 05/28/20 Range/Units 10:35 10:35 10:46 WBC 5.3 (4.0-10.0) x10^3/uL RBC 3.88 L (4.00-5.50) x10^6/uL Hgb 11.6 L D (12.0-16.0) g/dL Hct 34.0 (33.0-47.0) % MCV 87.6 (78.0-93.0) fL MCH 29.9 (26.0-32.0) pg MCHC 34.1 (32.0-36.0) g/dL RDW Coeff of Sam 12.8 (10.0-15.0) % Plt Count 210 (130-400) x10^3/uL Neut % (Auto) 69.4 (50.0-80.0) % Lymph % (Auto) 20.8 L (25.0-50.0) % [place] % (Auto) 9.2 (2.0-11.0) % Eos % (Auto) 0.6 (0.0-4.0) % Baso % (Auto) 0.0 L (0.2-1.2) % Sodium (136-145) mmol/L Potassium (3.5-5.1) mmol/L Chloride (98-107) mmol/L Carbon Dioxide (21-32) mmol/L Anion Gap (5-15) mmol/L BUN (7-18) mg/dL Creatinine (0.55-1.02) mg/dL Est Cr Clr Drug Dosing Estimated GFR (MDRD) Glucose (74-106) mg/dL Calcium (8.5-10.1) mg/dL Corrected Calcium (8.5-10.1) mg/dL Total Bilirubin (0.2-1.0) mg/dL AST (15-37) U/L ALT (14-59) U/L Alkaline Phosphatase (46-116) U/L Total Protein (6.4-8.2) g/dL Albumin (3.4-5.0) g/dL Globulin Albumin/Globulin Ratio Urine Color Yellow (YELLOW) Urine Appearance Clear (CLEAR) Urine pH 7.0 (5.0-8.0) Ur Specific [place] 1.025 Urine Protein Negative (NEGATIVE) mg/dL Urine Glucose (UA) Negative (NEGATIVE) mg/dL Urine Ketones Negative (NEGATIVE) mg/dL Urine Occult Blood Negative (NEGATIVE) Urine Nitrite Negative (NEGATIVE) Urine Bilirubin Negative (NEGATIVE) Urine Urobilinogen 2.0 H (0.2) EU/dL Ur Leukocyte Esterase Negative (NEGATIVE) Urine Opiates Screen Negative (NEGATIVE) Ur Buprenorphine Scrn Negative (NEGATIVE) Ur Oxycodone Screen Negative (NEGATIVE) Ur EDDP (Meth Metab) Negative (NEGATIVE) Urine Methadone Screen Negative (NEGATIVE) Ur Barbiturates Screen Negative (NEGATIVE) Ur Tricyclics Screen Negative (NEGATIVE) Ur Phencyclidine Scrn Negative (NEGATIVE) Ur Amphetamine Screen Negative (NEGATIVE) U Methamphetamines Scrn Negative (NEGATIVE) Urine MDMA Screen Negative (NEGATIVE) U Benzodiazepines Scrn Negative (NEGATIVE) U Cocaine Metab Screen Negative (NEGATIVE) U Marijuana (THC) Screen Negative (NEGATIVE) 05/28/20 Range/Units 10:46 WBC (4.0-10.0) x10^3/uL RBC (4.00-5.50) x10^6/uL Hgb (12.0-16.0) g/dL Hct (33.0-47.0) % MCV (78.0-93.0) fL MCH (26.0-32.0) pg MCHC (32.0-36.0) g/dL RDW Coeff of Sam (10.0-15.0) % Plt Count (130-400) x10^3/uL Neut % (Auto) (50.0-80.0) % Lymph % (Auto) (25.0-50.0) % [place] % (Auto) (2.0-11.0) % Eos % (Auto) (0.0-4.0) % Baso % (Auto) (0.2-1.2) % Sodium 136 (136-145) mmol/L Potassium 3.5 (3.5-5.1) mmol/L Chloride 104 (98-107) mmol/L Carbon Dioxide 25 (21-32) mmol/L Anion Gap 10.5 (5-15) mmol/L BUN 11 (7-18) mg/dL Creatinine 0.6 (0.55-1.02) mg/dL Est Cr Clr Drug Dosing TNP Estimated GFR (MDRD) > 60 Glucose 92 (74-106) mg/dL Calcium 8.6 (8.5-10.1) mg/dL Corrected Calcium 9.32 (8.5-10.1) mg/dL Total Bilirubin 0.4 (0.2-1.0) mg/dL AST 10 L (15-37) U/L ALT 17 (14-59) U/L Alkaline Phosphatase 43 L (46-116) U/L Total Protein 6.2 L (6.4-8.2) g/dL Albumin 3.1 L (3.4-5.0) g/dL Globulin 3.1 Albumin/Globulin Ratio 1.00 Urine Color (YELLOW) Urine Appearance (CLEAR) Urine pH (5.0-8.0) Ur Specific [place] Urine Protein (NEGATIVE) mg/dL Urine Glucose (UA) (NEGATIVE) mg/dL Urine Ketones (NEGATIVE) mg/dL Urine Occult Blood (NEGATIVE) Urine Nitrite (NEGATIVE) Urine Bilirubin (NEGATIVE) Urine Urobilinogen (0.2) EU/dL Ur Leukocyte Esterase (NEGATIVE) Urine Opiates Screen (NEGATIVE) Ur Buprenorphine Scrn (NEGATIVE) Ur Oxycodone Screen (NEGATIVE) Ur EDDP (Meth Metab) (NEGATIVE) Urine Methadone Screen (NEGATIVE) Ur Barbiturates Screen (NEGATIVE) Ur Tricyclics Screen (NEGATIVE) Ur Phencyclidine Scrn (NEGATIVE) Ur Amphetamine Screen (NEGATIVE) U Methamphetamines Scrn (NEGATIVE) Urine MDMA Screen (NEGATIVE) U Benzodiazepines Scrn (NEGATIVE) U Cocaine Metab Screen (NEGATIVE) U Marijuana (THC) Screen (NEGATIVE) Meds: Medications Discontinued Medications Generic Name Dose Route Start Last Admin Trade Name Freq PRN Reason Stop Dose Admin Lorazepam 1 mg 05/28/20 10:46 05/28/20 11:10 Ativan PO 05/28/20 10:47 1 mg ONETIME ONE Administration - Re-Assessments/Exams Free Text/Narrative Re-Assessment/Exam: 05/28/20 I really have feeling that the majority of her symptoms are anxiety in nature especially with the way she is rambling with her speech as well as her carpal spasms. Lorazepam 1 mg PO Labs Drawn. Labs are really unremarkable. After the Ativan she had complete resolution of all of her symptoms above. She feels back to baseline. We will discharge her home at this time discussing controlling her anxiety and outlets for it. I would like her to follow-up with her primary care OB doc if she has any continued problems. She is understanding this and her questions are answered. Departure - Departure Time of Disposition: 12:11 Disposition: Home, Self-Care 01 Clinical Impression: Panic attack - Discharge Information Instructions: Panic Attack, [id number] Additional Instructions: Home rest today. Drink plenty of fluids. Return to the ED if new or worsening symptoms. Follow up with primary OB if any continued concerns or problems. Sepsis Event Note (ED) - Focused Exam Vital Signs: Vital Signs Temp Pulse Resp BP Pulse Ox 05/28/20 10:25 98.2 F 101 H 16 138/79 100
[2020-05-28 10:59] LABS: BARBITURATE SCREEN,URINE NEGATIVE (NEGATIVE); BENZODIAZEPINES SCREEN,URINE NEGATIVE (NEGATIVE); EDDP,URINE SCREEN NEGATIVE (NEGATIVE); METHAMPHETAMINE SCREEN, URINE NEGATIVE (NEGATIVE); TCA SCREEN,URINE NEGATIVE (NEGATIVE); THC SCREEN,URINE 50 NG/ML NEGATIVE (NEGATIVE)
[2020-05-28 11:12] LABS: ANION GAP 10.5 mmol/L (5-15); CHLORIDE,CL 104 mmol/L (98-107); SODIUM,NA 136 mmol/L (136-145)
[2020-05-28 11:38] VITALS: BP 138/79; PULSE 101
== END 2020-05-28 12:20 | disposition home or self-care (01) ==
LOC: VM.ED 10:25
DX: O99.342 Other mental disorders complicating pregnancy, second trimester (principal); F41.0 Panic disorder [episodic paroxysmal anxiety]; Z88.0 Allergy status to penicillin; Z88.2 Allergy status to sulfonamides; Z88.8 Allergy status to other drugs, medicaments and biological substances; Z3A.15 15 weeks gestation of pregnancy
CPT/HCPCS: 36415; 80053; 80305-QW; 81003; 85025; 99284; A9270-GY

== ENCOUNTER 2020-06-01 17:27 | Emergency (ER) | payer MEDICAID, OTHER ==
--- NOTE | 2020-06-01 17:50 | EDM.PDOC ---
ED HPI GENERAL MEDICAL PROBLEM - General Stated Complaint: AND FELL ON ICE Time Seen by Provider: 06/01/20 17:40 Source of Information: Reports: Patient History Limitations: Reports: No Limitations - History of Present Illness INITIAL COMMENTS - FREE TEXT/NARRATIVE: Patient comes emergency department today with complaints of a fall on the ice. This patient is 1 para 0 at 15 weeks gestation. Just prior to arrival she was walking on the ice when she slipped and fell landing on her knees and then fell on her stomach somehow but did not hit anything else other than her stomach on the ground. Did not hit her head shoulders chest arms. There was no loss of conscious. She has no head neck or back pain she has no chest pain no shortness of breath or difficulty breathing. She has no abdominal pain. She has no pain to her pelvis. No paresthesias of her upper or lower extremities. No pain or injury to her upper or lower extremities. No change in the functionality of her upper or lower extremities. She spoke with her ITALIAN TUTOR who told her to come to the emergency department to be evaluated as she is 15 weeks . She has no abd cramping or back pain. No vaginal discharge drainage or bleeding. No Covid exposure no Covid symptoms - Related Data Allergies Allergy/AdvReac Type Severity Reaction Status Date / Time amoxicillin trihydrate Allergy Rash Verified 01/16/18 01:07 [From Augmentin] potassium clavulanate Allergy Rash Verified 01/16/18 01:07 [From Augmentin] Sulfa (Sulfonamide Allergy Rash Verified 01/16/18 01:07 Antibiotics) Home Meds: Home Meds Esomeprazole [NexIUM] 40 mg PO BID 01/28/15 [History] Past Medical History HEENT History: Reports: Allergic Rhinitis Cardiovascular History: Reports: None Respiratory History: Reports: None Gastrointestinal History: Reports: Gastritis Other Gastrointestinal History: chronic abd. pain. 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 Musculoskeletal History: Reports: None Neurological History: Reports: None Psychiatric History: Reports: None Endocrine/Metabolic History: Reports: None Hematologic History: Reports: None Immunologic History: Reports: None Oncologic (Cancer) History: Reports: None Dermatologic History: Reports: None - Past Surgical History Head Surgeries/Procedures: Reports: None HEENT Surgical History: Reports: Adenoidectomy, Oral Surgery, Tonsillectomy Cardiovascular Surgical History: Reports: None Respiratory Surgical History: Reports: None GI Surgical History: Reports: Colonoscopy, EGD Female Surgical History: Reports: None Endocrine Surgical History: Reports: None Neurological Surgical History: Reports: None Other Musculoskeletal Surgeries/Procedures:: ankle fx sx Oncologic Surgical History: Reports: None Dermatological Surgical History: Reports: None Social & Family History - Family History Family Medical History: No Pertinent Family History ED ROS GENERAL - Review of Systems Review Of Systems: Comprehensive ROS is negative, except as noted in HPI. ED EXAM, GI/ABD - Physical Exam Exam: See Below Exam Limited By: No Limitations General Appearance: Alert, WD/WN, No Apparent Distress Eyes: Bilateral: EOMI Ears: Normal External Exam Nose: Normal Inspection Throat/Mouth: Normal Inspection Head: Atraumatic, Normocephalic Neck: Normal Inspection, Supple, Non-Tender, Full Range of Motion Respiratory/Chest: No Respiratory Distress, Lungs Clear, Normal Breath Sounds, No Accessory Muscle Use, Chest Non-Tender Cardiovascular: Normal Peripheral Pulses, Regular Rate, Rhythm GI/Abdominal Exam: Normal Bowel Sounds, Soft, Non-Tender, Pelvis Stable (Female) Exam: Deferred Rectal (Female) Exam: Deferred Back Exam: Normal Inspection, Full Range of Motion Extremities: Normal Inspection, Normal Range of Motion, No Pedal Edema, Normal Capillary Refill Neurological: Alert, Oriented, CN II-XII Intact, Normal Cognition, Normal Gait, No Motor/Sensory Deficits Psychiatric: Normal Affect, Normal Mood Skin Exam: Warm, Dry, Intact, Normal Color Course - Re-Assessments/Exams Free Text/Narrative Re-Assessment/Exam: 06/01/20 18:36 heart tones initially were 145's aprox and repeated in 30 minutes and again were appropriate in the 145s. We will discharge home. No injury from the fall. She is only 15 weeks gestation and viability is not present so following at home will be appropriate. She is comfortable with this plan and her questions answered. Departure - Departure Time of Disposition: 18:34 Disposition: Home, Self-Care Clinical Impression: 15 weeks gestation of , Fall - Discharge Information Additional Instructions: Be careful on the ice. Recheck with your OB if you develop any abd pain cramping or vaginal bleeding. Return to the ED if new or worsening symptoms.
== END 2020-06-01 18:40 | disposition home or self-care (01) ==
LOC: VM.ED 17:27
CPT/HCPCS: 99283

== ENCOUNTER 2020-09-10 17:59 | Emergency (ER) | payer BC, MEDICAID ==
[2020-09-10] MEDS ORDERED: Sodium Chloride 0.9% 10 ML Syringe FLUSH PRN (18:21)
--- NOTE | 2020-09-10 18:30 | EDM.PDOC ---
ED HPI GENERAL MEDICAL PROBLEM - General Stated Complaint: HEADACHE/FACE NUMBNESS-30 WKS Time Seen by Provider: 09/10/20 18:15 Source of Information: Reports: Patient History Limitations: Reports: No Limitations - History of Present Illness INITIAL COMMENTS - FREE TEXT/NARRATIVE: Pt. presents to ER with complaints of headache that started yesterday, feeling flushed, intermittent R sided numbness (side of nose, foot, hand, and forearm, resolved on arrival to ER) which started at approx. 3 this afternoon and blurred vision that started at about 4 PM. Pt. is 30 weeks gestation, . Pt. called "ask a nurse" who told her to come to her local ER. Denies history of PIH, hypertension prior to the . Pt. denies any problems with speech/ambulation. She states that she has been taking tylenol which has not been helping with the headache. Pt. denies any chest pain, shortness of breath, jaw, arm, neck or back pain. No diaphoresis. No nausea/vomiting. Onset: Today Onset Date: 09/10/20 Location: Reports: Head, Face, Upper Extremity, Right, Lower Extremity, Right, Generalized Headache Pain Score (Numeric/FACES): 8 - Related Data Allergies Allergy/AdvReac Type Severity Reaction Status Date / Time amoxicillin trihydrate Allergy Rash Verified 09/10/20 19:00 [From Augmentin] potassium clavulanate Allergy Rash Verified 09/10/20 19:00 [From Augmentin] Sulfa (Sulfonamide Allergy Rash Verified 09/10/20 19:00 Antibiotics) Home Meds: Home Meds Esomeprazole [NexIUM] 40 mg PO BID 01/28/15 [History] Past Medical History HEENT History: Reports: Allergic Rhinitis Cardiovascular History: Reports: None Respiratory History: Reports: None Gastrointestinal History: Reports: Gastritis Other Gastrointestinal History: chronic abd. pain. autoimmune gastritis serologies Genitourinary History: Reports: None COMMUNITY LIVING SPECIALIST History: Reports: None Musculoskeletal History: Reports: None Neurological History: Reports: None Psychiatric History: Reports: None Endocrine/Metabolic History: Reports: None Hematologic History: Reports: None Immunologic History: Reports: None Oncologic (Cancer) History: Reports: None Dermatologic History: Reports: None - Past Surgical History Head Surgeries/Procedures: Reports: None HEENT Surgical History: Reports: Adenoidectomy, Oral Surgery, Tonsillectomy Cardiovascular Surgical History: Reports: None Respiratory Surgical History: Reports: None GI Surgical History: Reports: Colonoscopy, EGD Female Surgical History: Reports: None Endocrine Surgical History: Reports: None Neurological Surgical History: Reports: None Other Musculoskeletal Surgeries/Procedures:: ankle fx sx Oncologic Surgical History: Reports: None Dermatological Surgical History: Reports: None Social & Family History - Family History Family Medical History: No Pertinent Family History ED ROS GENERAL - Review of Systems Review Of Systems: See Below Constitutional: Reports: No Symptoms HEENT: Reports: No Symptoms Respiratory: Reports: No Symptoms Cardiovascular: Reports: No Symptoms Endocrine: Reports: No Symptoms GI/Abdominal: Reports: No Symptoms : Reports: No Symptoms Musculoskeletal: Reports: No Symptoms Skin: Reports: No Symptoms Neurological: Reports: Headache, Paresthesia, Other (blurred vision) Psychiatric: Reports: No Symptoms ED EXAM, GENERAL - Physical Exam Exam: See Below Exam Limited By: No Limitations General Appearance: Alert, WD/WN, No Apparent Distress Eye Exam: Bilateral Eye: EOMI, Normal Fundi, Normal Inspection, PERRL Throat/Mouth: Normal Inspection, Normal Lips, Normal Teeth, Normal Oropharynx, Normal Voice, No Airway Compromise Head: Atraumatic, Normocephalic Neck: Normal Inspection, Supple, Non-Tender, Full Range of Motion Respiratory/Chest: No Respiratory Distress, Lungs Clear, Normal Breath Sounds, No Accessory Muscle Use, Chest Non-Tender Cardiovascular: Normal Peripheral Pulses, Regular Rate, Rhythm, No Edema, No JVD, No Murmur Peripheral Pulses: 4+: Radial (R) GI/Abdominal: Soft, Non-Tender, No Distention, No Mass (Female) Exam: Deferred, Other (FHT 150) Rectal (Female) Exam: Deferred Back Exam: Normal Inspection, Full Range of Motion Extremities: Normal Inspection, Normal Range of Motion, Non-Tender, No Pedal Edema, Normal Capillary Refill Neurological: Alert, Oriented, CN II-XII Intact, Normal Cognition, Normal Gait, Normal Reflexes, No Motor/Sensory Deficits, Other (currently no symptoms) Psychiatric: Normal Affect, Normal Mood Skin Exam: Warm, Dry, Intact, Normal Color, No Rash Course - Vital Signs Last Recorded V/S: Last Vital Signs Temp 36.1 C 09/10/20 18:00 Pulse 92 09/10/20 19:53 Resp 16 09/10/20 19:53 BP 139/71 09/10/20 19:53 Pulse Ox 99 09/10/20 19:53 - Orders/Labs/Meds Orders: Active Orders 24 hr Category Date Time Status Peripheral IV Insertion Adult [OM.PC] Routine Oth 09/10/20 18:21 Ordered Labs: Laboratory Tests 09/10/20 09/10/20 09/10/20 Range/Units 18:10 18:10 18:20 WBC 9.6 (4.0-10.0) x10^3/uL RBC 3.97 L (4.00-5.50) x10^6/uL Hgb 12.4 (12.0-16.0) g/dL Hct 36.0 (33.0-47.0) % MCV 90.7 D (78.0-93.0) fL MCH 31.2 (26.0-32.0) pg MCHC 34.4 (32.0-36.0) g/dL RDW Coeff of Sam 12.4 (10.0-15.0) % Plt Count 250 (130-400) x10^3/uL Neut % (Auto) 71.0 (50.0-80.0) % Lymph % (Auto) 20.0 L (25.0-50.0) % Garrett % (Auto) 8.1 (2.0-11.0) % Eos % (Auto) 0.8 (0.0-4.0) % Baso % (Auto) 0.1 L (0.2-1.2) % PT (9.9-12.5) SEC INR (2.0-3.5) APTT (25.6-32.8) SEC Sodium (136-145) mmol/L Potassium (3.5-5.1) mmol/L Chloride (98-107) mmol/L Carbon Dioxide (21-32) mmol/L Anion Gap (5-15) mmol/L BUN (7-18) mg/dL Creatinine (0.55-1.02) mg/dL Est Cr Clr Drug Dosing mL/min Estimated GFR (MDRD) Glucose (70-99) mg/dL Uric Acid (2.6-6.0) mg/dL Calcium (8.5-10.1) mg/dL Corrected Calcium (8.5-10.1) mg/dL Total Bilirubin (0.2-1.0) mg/dL AST (15-37) U/L ALT (14-59) U/L Alkaline Phosphatase (46-116) U/L Lactate Dehydrogenase (81-234) U/L C-Reactive Protein (<=0.9) mg/dL Total Protein (6.4-8.2) g/dL Albumin (3.4-5.0) g/dL Globulin Albumin/Globulin Ratio Urine Color Yellow (YELLOW) Urine Appearance Clear (CLEAR) Urine pH 6.5 (5.0-8.0) Ur Specific Sutton 1.015 Urine Protein Negative (NEGATIVE) mg/dL Urine Glucose (UA) Negative (NEGATIVE) mg/dL Urine Ketones Negative (NEGATIVE) mg/dL Urine Occult Blood Negative (NEGATIVE) Urine Nitrite Negative (NEGATIVE) Urine Bilirubin Negative (NEGATIVE) Urine Urobilinogen 0.2 (0.2) EU/dL Ur Leukocyte Esterase Negative (NEGATIVE) Urine Opiates Screen Negative (NEGATIVE) Ur Buprenorphine Scrn Negative (NEGATIVE) Ur Oxycodone Screen Negative (NEGATIVE) Ur EDDP (Meth Metab) Negative (NEGATIVE) Urine Methadone Screen Negative (NEGATIVE) Ur Barbiturates Screen Negative (NEGATIVE) Ur Tricyclics Screen Negative (NEGATIVE) Ur Phencyclidine Scrn Negative (NEGATIVE) Ur Amphetamine Screen Negative (NEGATIVE) U Methamphetamines Scrn Negative (NEGATIVE) Urine MDMA Screen Negative (NEGATIVE) U Benzodiazepines Scrn Negative (NEGATIVE) U Cocaine Metab Screen Negative (NEGATIVE) U Marijuana (THC) Screen Negative (NEGATIVE) 09/10/20 09/10/20 Range/Units 18:20 18:20 WBC (4.0-10.0) x10^3/uL RBC (4.00-5.50) x10^6/uL Hgb (12.0-16.0) g/dL Hct (33.0-47.0) % MCV (78.0-93.0) fL MCH (26.0-32.0) pg MCHC (32.0-36.0) g/dL RDW Coeff of Sam (10.0-15.0) % Plt Count (130-400) x10^3/uL Neut % (Auto) (50.0-80.0) % Lymph % (Auto) (25.0-50.0) % Garrett % (Auto) (2.0-11.0) % Eos % (Auto) (0.0-4.0) % Baso % (Auto) (0.2-1.2) % PT 9.7 L (9.9-12.5) SEC INR 0.9 L (2.0-3.5) APTT 21.0 L (25.6-32.8) SEC Sodium 138 (136-145) mmol/L Potassium 3.4 L (3.5-5.1) mmol/L Chloride 103 (98-107) mmol/L Carbon Dioxide 25 (21-32) mmol/L Anion Gap 13.4 (5-15) mmol/L BUN 10 (7-18) mg/dL Creatinine 0.8 (0.55-1.02) mg/dL Est Cr Clr Drug Dosing 99.76 mL/min Estimated GFR (MDRD) > 60 Glucose 93 (70-99) mg/dL Uric Acid 2.6 (2.6-6.0) mg/dL Calcium 8.6 (8.5-10.1) mg/dL Corrected Calcium 9.72 (8.5-10.1) mg/dL Total Bilirubin 0.3 (0.2-1.0) mg/dL AST 16 (15-37) U/L ALT 33 (14-59) U/L Alkaline Phosphatase 122 H (46-116) U/L Lactate Dehydrogenase 151 (81-234) U/L C-Reactive Protein 0.3 (<=0.9) mg/dL Total Protein 6.4 (6.4-8.2) g/dL Albumin 2.6 L (3.4-5.0) g/dL Globulin 3.8 Albumin/Globulin Ratio 0.68 Urine Color (YELLOW) Urine Appearance (CLEAR) Urine pH (5.0-8.0) Ur Specific Sutton Urine Protein (NEGATIVE) mg/dL Urine Glucose (UA) (NEGATIVE) mg/dL Urine Ketones (NEGATIVE) mg/dL Urine Occult Blood (NEGATIVE) Urine Nitrite (NEGATIVE) Urine Bilirubin (NEGATIVE) Urine Urobilinogen (0.2) EU/dL Ur Leukocyte Esterase (NEGATIVE) Urine Opiates Screen (NEGATIVE) Ur Buprenorphine Scrn (NEGATIVE) Ur Oxycodone Screen (NEGATIVE) Ur EDDP (Meth Metab) (NEGATIVE) Urine Methadone Screen (NEGATIVE) Ur Barbiturates Screen (NEGATIVE) Ur Tricyclics Screen (NEGATIVE) Ur Phencyclidine Scrn (NEGATIVE) Ur Amphetamine Screen (NEGATIVE) U Methamphetamines Scrn (NEGATIVE) Urine MDMA Screen (NEGATIVE) U Benzodiazepines Scrn (NEGATIVE) U Cocaine Metab Screen (NEGATIVE) U Marijuana (THC) Screen (NEGATIVE) Meds: Medications Discontinued Medications Generic Name Dose Route Start Last Admin Trade Name Freq PRN Reason Stop Dose Admin Fentanyl 50 mcg 09/10/20 19:23 Fentanyl 50 Mcg/Ml Sdv IVPUSH 09/10/20 19:24 ONETIME ONE Midazolam HCl 2 mg 09/10/20 19:23 Midazolam 1 Mg/Ml 2 Ml Sdv IVPUSH 09/10/20 19:24 ONETIME ONE Sodium Chloride 10 ml 09/10/20 18:21 Sodium Chloride 0.9% 10 Ml Syringe FLUSH ASDIRECTED PRN Keep Vein Open - Re-Assessments/Exams Free Text/Narrative Re-Assessment/Exam: 09/10/20 20:[address] Guthrie, COMMUNITY LIVING SPECIALIST electronic engraver at [place] who happens to be the patient's physician. She advised bedrest and follow-up in clinic on Saturday for recheck of blood pressure. Pt. did not have any recurrence of her symptoms, other than some continued headache. NIH stroke scale was 0 during her entire stay in ER. Departure - Departure Time of Disposition: 20:00 Disposition: Home, Self-Care 01 Clinical Impression: induced hypertension - Discharge Information Instructions: Hypertension During Referrals: Anisa Guthrie MD [Primary Care Provider] - Forms: ED Department Discharge Additional Instructions: Bedrest until you are seen on Saturday. Please excuse from work on Saturday. Drink plenty of fluids. Tylenol as needed for headache. If your symptoms are getting worse (headache, vision loss or change, new numbness/weakness in arms/legs,face) you will need to go to [facility] to be evaluated. Sepsis Event Note (ED) - Focused Exam Vital Signs: Vital Signs Temp Pulse Resp BP Pulse Ox 09/10/20 19:53 92 16 139/71 99 09/10/20 18:50 90 131/76 09/10/20 18:00 36.1 C 93 16 141/68 H 99 - My Orders Last 24 Hours: My Active Orders 09/10/20 18:21 Peripheral IV Insertion Adult [OM.PC] Routine - Assessment/Plan Last 24 Hours: My Active Orders 09/10/20 18:21 Peripheral IV Insertion Adult [OM.PC] Routine Plan: Bedrest until you are seen on Saturday. Please excuse from work on Saturday. Drink plenty of fluids. Tylenol as needed for headache. If your symptoms are getting worse (headache, vision loss or change, new numbne ss/weakness in arms/legs,face) you will need to go to [facility] to be evaluated.
[2020-09-10 19:12] LABS: CHLORIDE,CL 103 mmol/L (98-107); SODIUM,NA 138 mmol/L (136-145)
[2020-09-10 19:14] LABS: BARBITURATE SCREEN,URINE NEGATIVE (NEGATIVE); BENZODIAZEPINES SCREEN,URINE NEGATIVE (NEGATIVE); EDDP,URINE SCREEN NEGATIVE (NEGATIVE); METHAMPHETAMINE SCREEN, URINE NEGATIVE (NEGATIVE); TCA SCREEN,URINE NEGATIVE (NEGATIVE); THC SCREEN,URINE 50 NG/ML NEGATIVE (NEGATIVE)
[2020-09-10 19:15] LABS: ANION GAP 13.4 mmol/L (5-15)
[2020-09-10] MEDS ORDERED: fentaNYL 50 MCG/ML SDV IVPUSH ONE (19:23)
[2020-09-10] MEDS ORDERED: Midazolam 1 MG/ML 2 ML SDV IVPUSH ONE (19:23)
[2020-09-10 19:54] VITALS: BP 139/71; PULSE 92
== END 2020-09-10 20:05 | disposition home or self-care (01) ==
LOC: VM.ED 17:59
DX: O13.3 Gestational [pregnancy-induced] hypertension without significant proteinuria, third trimester (principal); Z88.1 Allergy status to other antibiotic agents; Z88.2 Allergy status to sulfonamides; Z3A.30 30 weeks gestation of pregnancy
CPT/HCPCS: 80053; 80305-QW; 81003; 83615; 84550; 85025; 85610; 85730; 86140; 99284

== ENCOUNTER 2022-10-08 18:15 | Emergency (ER) | payer BC, MEDICAID ==
[2022-10-08] MEDS ORDERED: Take Home: Cephalexin 500 MG Cap, 6 Cap Pack PO ONE (19:39)
[2022-10-08 20:02] VITALS: BP 137/80; PULSE 89
== END 2022-10-08 19:55 | disposition home or self-care (01) ==
LOC: VM.ED 18:15
DX: N61.0 Mastitis without abscess (principal); Z88.0 Allergy status to penicillin; Z88.2 Allergy status to sulfonamides
CPT/HCPCS: 99283; 99284; A9270-GY

== ENCOUNTER 2024-07-04 19:23 | Emergency (ER) | payer BC, MEDICAID ==
[2024-07-04] MEDS ORDERED: Sodium Chloride 0.9% 10 ML Syringe FLUSH PRN (19:37)
[2024-07-04] MEDS: Lactated Ringers 1,000 ML IV ONE (19:47)
[2024-07-04 20:00] LABS: BASOPHILS PERCENT AUTO 0.2 % (0.2-1.2); EOSINOPHILS ABSOLUTE AUTO 0.1 x10^3/uL (0.0-0.5); EOSINOPHILS PERCENT AUTO 1.4 % (0.0-4.0); HEMATOCRIT 34.7 % (33.0-47.0); HEMOGLOBIN 11.7 g/dL (12.0-16.0); LYMPHOCYTES ABSOLUTE AUTO 1.9 x10^3/uL (1.0-4.8); LYMPHOCYTES PERCENT AUTO 39.8 % (25.0-50.0); MEAN CORPUSCULAR HGB CONC 33.7 g/dL (32.0-36.0); MONOCYTES ABSOLUTE AUTO 0.5 x10^3/uL (0.0-0.8); MONOCYTES PERCENT AUTO 10.1 % (2.0-11.0); NEUTROPHILS ABSOLUTE AUTO 2.4 x10^3/uL (1.8-7.7); NEUTROPHILS PERCENT AUTO 48.5 % (50.0-80.0); PLATELET COUNT,PLT 291 x10^3/uL (130-400); RED BLOOD CELL COUNT 4.18 x10^6/uL (4.00-5.50); WHITE BLOOD CELL COUNT,WBC 4.9 x10^3/uL (4.0-10.0)
[2024-07-04 20:13] LABS: A/G RATIO 1.12; ALANINE AMINOTRANSFERASE,ALT 17 U/L (14-59); ALBUMIN 3.7 g/dL (3.4-5.0); ALKALINE PHOSPHATASE 64 U/L (46-116); ASPARTATE AMNIOTRANSFERASE,AST 15 U/L (15-37); BILIRUBIN TOTAL 0.2 mg/dL (0.2-1.0); BLOOD UREA NITROGEN,BUN 10 mg/dL (7-18); CARBON DIOXIDE,CO2 29 mmol/L (21-32); CHLORIDE,CL 102 mmol/L (98-107); CREATININE 0.9 mg/dL (0.55-1.02); EST CRCL DRUG DOSING (CG) 85.56 mL/min; GLUCOSE RANDOM 100 mg/dL (70-99); POTASSIUM,K 3.7 mmol/L (3.5-5.1); SODIUM,NA 140 mmol/L (136-145)
[2024-07-04 20:16] LABS: ANION GAP 12.7 mmol/L (5-15); C-REACTIVE PROTEIN < 0.50 mg/dL (<=0.50); ESTIMATED GFR 88 mL/min (>=60)
[2024-07-04] MEDS: Ondansetron 4 MG/2 ML SDV IVPUSH ONE (20:31)
[2024-07-04] MEDS: Ketorolac 15 MG/ML SDV IVPUSH ONE (20:31)
[2024-07-04 21:23] VITALS: BP 121/80; PULSE 88
[2024-07-04] MEDS: Take Home: Ondansetron 4 MG Tab.DIS, 5 Tab Pack PO ONE (21:59)
== END 2024-07-04 22:05 | disposition home or self-care (01) ==
LOC: VM.ED 19:23
DX: B34.9 Viral infection, unspecified (principal); Z79.899 Other long term (current) drug therapy; Z88.0 Allergy status to penicillin; Z88.8 Allergy status to other drugs, medicaments and biological substances; Z88.2 Allergy status to sulfonamides
CPT/HCPCS: 70450; 71046; 80053; 85025; 86140; 87428-QW; 96361; 96374; 96375; 99283; 99284-25; J1885; J2405; J7120; Q0162

== ENCOUNTER 2024-11-12 18:36 | Emergency (ER) | payer BC ==
[2024-11-12] MEDS: Alum Hydrox/Mag Hydrox/Simeth 30 ML, Lidocaine 2% 15 ML, Promethazine 12.5 MG PO ONE (18:48)
[2024-11-12 19:00] VITALS: BP 131/79; PULSE 89
== END 2024-11-12 19:15 | disposition home or self-care (01) ==
LOC: VM.ED 18:36
DX: K29.00 Acute gastritis without bleeding (principal); Z88.0 Allergy status to penicillin; Z88.2 Allergy status to sulfonamides; Z88.8 Allergy status to other drugs, medicaments and biological substances; Z79.899 Other long term (current) drug therapy
CPT/HCPCS: 93005; 99284; A9270

== ENCOUNTER 2025-01-05 15:43 | Emergency (ER) | payer BC ==
[2025-01-05 20:11] VITALS: BP 133/70; PULSE 90
== END 2025-01-05 16:10 | disposition home or self-care (01) ==
LOC: VM.ED 15:43
DX: H92.02 Otalgia, left ear (principal); Z88.2 Allergy status to sulfonamides; Z88.8 Allergy status to other drugs, medicaments and biological substances; Z88.0 Allergy status to penicillin; Z79.899 Other long term (current) drug therapy
CPT/HCPCS: 99282; 99283